=== PATIENT | male | born 1980 | race Caucasian/White ===

== ENCOUNTER 2020-06-04 07:05 | Outpatient (CLI) | payer BC ==
--- NOTE | 2020-06-04 08:49 | ULT ---
THYROID ULTRASOUND: Date: 06/04/2020 COMPARISON: 09/24/2015. 07/13/2016. HISTORY: Follow-up left thyroid nodule. FINDINGS: Echotexture: Homogeneous echotexture. Thyroid isthmus measures 0.4 cm. Right thyroid lobe measures 4.9 x 1.6 x 1.9 cm. Left thyroid lobe measures 4.4 x 1.6 x 1.5 cm. Nodules: Right thyroid lobe: 0.2 cm cyst in the mid pole of the right thyroid lobe. Left thyroid lobe: 0.7 cm x 0.5 cm x 0.7 cm solid nodule in the lower pole of the left thyroid lobe. Small mixed solid and cystic nodule in the medial inferior pole of the left thyroid lobe measures 0. 3 cm. When comparing the examination from 09/24/2015, this solid nodule in the lower pole of left thy roid lobe is unchanged. Previously, this nodule measured 0.6 x 1.0 cm. IMPRESSION: TI-RADS Level II - Benign finding. There is a stable solid nodule in the lower pole of the left thyroid lobe, unchanged since 09/24/2015 . POS: PPP
== END 2020-06-04 07:06 | disposition home or self-care (01) ==
LOC: BICULT 07:05
PROVIDERS: ATTEND Family Medicine
DX: E04.1 Nontoxic single thyroid nodule (principal)
CPT/HCPCS: 76536